=== PATIENT | female | born 1945 | race Caucasian/White ===

== ENCOUNTER → 2021-05-03 | Outpatient (CLI) | payer MEDICARE ==
[~2021-05-03] MED LIST: BISA5EC PO
[2021-05-03 12:34] LABS: Source, Urine Clean Catch
[2021-05-03 12:35] LABS: Bacteria Not Seen /hpf; Red Blood Cells, Urine Rare /hpf (0-2); Squamous Epithelial Cells Few /hpf (Few)
[2021-05-03 12:36] LABS: White Blood Cells, Urine 0-2 /hpf (0-5)
[2021-05-03 12:54] LABS: BASOPHILS ABSOLUTE AUTO 0.06 K/mm3 (0.00-0.23); BASOPHILS PERCENT AUTO 1 % (0-2); EOSINOPHILS ABSOLUTE AUTO 0.05 K/mm3 (0.00-0.68); EOSINOPHILS PERCENT AUTO 1 % (0-6); Hematocrit 41.4 % (33.0-51.0); IMMATURE GRAN ABSOLUTE AUTO 0.02 K/mm3 (0.00-0.10); IMMATURE GRAN PERCENT AUTO 0 % (0-1); LYMPHOCYTES ABSOLUTE AUTO 1.28 K/mm3 (0.84-5.20); LYMPHOCYTES PERCENT AUTO 15 % (21-46); MONOCYTES ABSOLUTE AUTO 0.78 K/mm3 (0.16-1.47); MONOCYTES PERCENT AUTO 9 % (4-13); Mean Corpuscular HGB 30.6 pg (26.0-34.0); Mean Corpuscular HGB Conc 33.8 g/dL (31.5-36.5); Mean Corpuscular Volume 90 fL (80-100); Mean Platelet Volume 11.1 fL (9.1-12.4); NEUTROPHILS PERCENT AUTO 75 % (41-73); Platelet Count 228 K/mm3 (150-400); RDW Coefficient Variation 13.7 % (11.7-14.2); RDW Standard Deviation 45.7 fL (35.1-46.3); Red Blood Cell Count 4.58 M/mm3 (3.80-5.20); White Blood Cell Count 8.59 K/mm3 (4.00-11.30)
[2021-05-03 13:02] LABS: Albumin, Blood 3.8 g/dL (3.4-5.0); Bilirubin, Total 0.4 mg/dL (0.1-1.0); Bun/Creatinine Ratio 14.3 (12.0-20.0); Calcium, Blood 9.8 mg/dL (8.5-10.1); Creatinine, Blood 0.98 mg/dL (0.40-1.00); Globulin, Blood 3.8 g/dL (2.2-4.0); Potassium, Blood 3.4 mmol/L (3.5-5.5); Total Protein, Blood 7.6 g/dL (6.4-8.2)
[2021-05-03 14:13] LABS: Source, Urine Clean Catch
[2021-05-03 14:28] LABS: Bacteria Not Seen /hpf; Red Blood Cells, Urine 0-2 /hpf (0-2); Squamous Epithelial Cells Few /hpf (Few); White Blood Cells, Urine 0-2 /hpf (0-5)
== END | disposition home or self-care (01) ==
LOC: LAB SHORT 12:25 → LAB EV 12:25
PROVIDERS: General Practice
DX: R19.7 Diarrhea, unspecified (principal); R82.90 Unspecified abnormal findings in urine
CPT/HCPCS: 80053; 81015; 85025

== ENCOUNTER → 2021-05-08 | Outpatient (CLI) | payer MEDICARE ==
[2021-05-08 15:03] LABS: Campylobacter Sp Not Detected (NOT DETECT)
[2021-05-08 15:04] LABS: Adenovirus F 40/41 Not Detected (NOT DETECT); Astrovirus Not Detected (NOT DETECT); Cryptosporidium Not Detected (NOT DETECT); Cyclospora Cayetanensis Not Detected (NOT DETECT); E. Coli O157 Not Detected (NOT DETECT); Entamoeba Histolytica Not Detected (NOT DETECT); Enteroaggregative E. coli-EAEC Not Detected (NOT DETECT); Enteropathogenic E. coli-EPEC Not Detected (NOT DETECT); Enterotoxigenic E. coli-ETEC Not Detected (NOT DETECT); Giardia Lamblia Not Detected (NOT DETECT); Norovirus GI/GII Not Detected (NOT DETECT); Plesiomonas Shigelloides Not Detected (NOT DETECT); Rotavirus A Not Detected (NOT DETECT); Salmonella Sp Not Detected (NOT DETECT); Sapovirus Not Detected (NOT DETECT); Shiga Toxin-prod E. coli-STEC Not Detected (NOT DETECT); Shigella/Enteroin E. coli-EIEC Not Detected (NOT DETECT); Vibrio Cholerae Not Detected (NOT DETECT); Vibrio Sp Not Detected (NOT DETECT); Yersinia Enterocolitica Not Detected (NOT DETECT)
== END | disposition home or self-care (01) ==
LOC: LAB EV 07:13 → LAB SHORT 07:13
PROVIDERS: General Practice
DX: R19.7 Diarrhea, unspecified (principal)
CPT/HCPCS: 0097U

== ENCOUNTER 2021-06-01 11:52 | Emergency (ER) | payer MEDICARE ==
[~2021-06-01] VITALS: Ht 162.6 cm; Wt 54.4 kg
[2021-06-01 12:46] LABS: BASOPHILS ABSOLUTE AUTO 0.05 K/mm3 (0.00-0.23); BASOPHILS PERCENT AUTO 0 % (0-2); EOSINOPHILS PERCENT AUTO 0 % (0-6); Hematocrit 41.2 % (33.0-51.0); Hemoglobin 14.3 g/dL (11.5-16.0); IMMATURE GRAN ABSOLUTE AUTO 0.05 K/mm3 (0.00-0.10); IMMATURE GRAN PERCENT AUTO 0 % (0-1); LYMPHOCYTES ABSOLUTE AUTO 0.71 K/mm3 (0.84-5.20); LYMPHOCYTES PERCENT AUTO 5 % (21-46); MONOCYTES ABSOLUTE AUTO 0.88 K/mm3 (0.16-1.47); MONOCYTES PERCENT AUTO 6 % (4-13); Mean Corpuscular HGB Conc 34.7 g/dL (31.5-36.5); Mean Corpuscular Volume 89 fL (80-100); Mean Platelet Volume 10.9 fL (9.1-12.4); NEUTROPHILS ABSOLUTE AUTO 12.27 K/mm3 (1.96-9.15); NEUTROPHILS PERCENT AUTO 88 % (41-73); Platelet Count 235 K/mm3 (150-400); RDW Coefficient Variation 13.5 % (11.7-14.2); RDW Standard Deviation 43.9 fL (35.1-46.3); Red Blood Cell Count 4.62 M/mm3 (3.80-5.20); White Blood Cell Count 13.96 K/mm3 (4.00-11.30)
[2021-06-01 13:01] LABS: Alanine Aminotransfer (ALT/SGP 19 U/L (12-78); Albumin, Blood 3.4 g/dL (3.4-5.0); Albumin/Globulin Ratio 0.8 (0.8-1.8); Alk Phos 118 U/L (50-136); Anion Gap 11 mmol/L (6-16); Aspartate Aminotrans (AST/SGOT 20 U/L (12-37); Bilirubin, Total 0.7 mg/dL (0.1-1.0); Blood Urea Nitrogen 14 mg/dL (8-24); Bun/Creatinine Ratio 19.7 (12.0-20.0); CO2, Blood 22 mmol/L (21-32); Calcium, Blood 8.6 mg/dL (8.5-10.1); Chloride, Blood 98 mmol/L (98-108); Creatinine, Blood 0.71 mg/dL (0.40-1.00); Glomerular Filtration Rate >60 (60-); Glucose, Blood 161 mg/dL (70-99); Potassium, Blood 3.2 mmol/L (3.5-5.5); Sodium, Blood 131 mmol/L (136-145); Total Protein, Blood 7.4 g/dL (6.4-8.2)
[2021-06-01] MEDS ORDERED: BISA5EC PO (13:41)
== END 2021-06-01 15:04 | disposition home or self-care (01) ==
LOC: ER 11:52
PROVIDERS: Physician Assistant
DX: K56.41 Fecal impaction (principal); I10 Essential (primary) hypertension
CPT/HCPCS: 36415; 74177; 80053; 82272; 85025; 96374-59; 99284-25; A9270; J2060; Q9967

== ENCOUNTER 2021-10-16 08:55 | Day surgery (SDC) | payer MEDICARE ==
[~2021-10-16] VITALS: Ht 162.6 cm; Wt 51.4 kg
[~2021-10-16 08:55] MED LIST changes: +AMLO5; +ASPI325; +Benicar40 MG; +CALCIUM CIT 311 EAC7; +EUTHYROX50 MCG; +HYDCHL12.5; +POTA10T; +PROLIA60 MG/1 ML
[2021-10-16] MEDS ORDERED: ZOCOR20 MG PO (09:16)
--- NOTE | 2021-10-16 09:21 | NUR ---
10/16/21 0921 Rebel Celestin CALL LIGHT WITHIN REACH. EYE DROPS AT 0919 PLEDGETT AT 0911
== END 2021-10-16 10:53 | disposition home or self-care (01) ==
LOC: ORSCSDS 08:55
PROVIDERS: Ophthalmology
PROC: 08RK3JZ Replacement of Left Lens with Synthetic Substitute, Percutaneous Approach (ICD-10-PCS; principal; 2021-10-16 10:15)
DX: H25.12 Age-related nuclear cataract, left eye (principal); I10 Essential (primary) hypertension; E03.9 Hypothyroidism, unspecified; Z79.899 Other long term (current) drug therapy; Z79.82 Long term (current) use of aspirin
CPT/HCPCS: J2001; J2250; J3010; J3301; J7040; V2632

== ENCOUNTER 2021-11-06 08:40 | Day surgery (SDC) | payer MEDICARE ==
[~2021-11-06] VITALS: Ht 160 cm; Wt 51.6 kg
[~2021-11-06 08:40] MED LIST changes: +ZOCOR20 MG PO
--- NOTE | 2021-11-06 09:12 | NUR ---
11/06/21 0912 ALISSA HERNANDEZ TETRACAINE DROP INSTILLED AT 0911 PLEDGETT INSERTED AT 0912
--- NOTE | 2021-11-06 10:56 | NUR ---
11/06/21 Dc6 Rebel Celestin PT RESTING, DENIES ANY PAIN. VS WNL. PT STATES SHE IS READY TO GO HOME. PT SMILING AND LAUGHING IN THE ROOM
== END 2021-11-06 11:03 | disposition home or self-care (01) ==
LOC: ORSCSDS 08:40
PROVIDERS: Ophthalmology
PROC: 08RJ3JZ Replacement of Right Lens with Synthetic Substitute, Percutaneous Approach (ICD-10-PCS; principal; 2021-11-06 10:00)
DX: H25.11 Age-related nuclear cataract, right eye (principal); I10 Essential (primary) hypertension; E03.9 Hypothyroidism, unspecified; Z79.899 Other long term (current) drug therapy
CPT/HCPCS: J2001; J2250; J3010; J3301; J7040; V2632

== ENCOUNTER → 2024-05-06 | Outpatient (CLI) | payer MEDICARE ==
[~2024-05-06] MED LIST changes: +ALEN10 PO; +POTCHL20ER PO
[2024-05-06 09:43] LABS: Appearance, Urine Clear (Clear); Bilirubin, Urine Neg (Neg); Blood, Urine Neg (Neg); Color, Urine Yellow (P-Yellow); Glucose Qualitative, Urine Neg (Normal); Ketones, Urine Neg (Neg); Leukocyte Esterase, Urine Neg (Neg); Nitrite, Urine Neg (Neg); Protein, Urine Neg (Neg); Specific Gravity, Urine 1.015 (1.003-1.022); Urobilinogen, Urine NORM (Normal)
[2024-05-06 20:21] LABS: Adenovirus F 40/41 Not Detected (NOT DETECT); Astrovirus Not Detected (NOT DETECT); Campylobacter Sp Not Detected (NOT DETECT); Cryptosporidium Not Detected (NOT DETECT); Cyclospora Cayetanensis Not Detected (NOT DETECT); E. Coli O157 Not Detected (NOT DETECT); Entamoeba Histolytica Not Detected (NOT DETECT); Enteroaggregative E. coli-EAEC Not Detected (NOT DETECT); Enteropathogenic E. coli-EPEC Not Detected (NOT DETECT); Enterotoxigenic E. coli-ETEC Not Detected (NOT DETECT); Giardia Lamblia Not Detected (NOT DETECT); Norovirus GI/GII Not Detected (NOT DETECT); Plesiomonas Shigelloides Not Detected (NOT DETECT); Rotavirus A Not Detected (NOT DETECT); Salmonella Sp Not Detected (NOT DETECT); Sapovirus Not Detected (NOT DETECT); Shiga Toxin-prod E. coli-STEC Not Detected (NOT DETECT); Shigella/Enteroin E. coli-EIEC Not Detected (NOT DETECT); Vibrio Cholerae Not Detected (NOT DETECT); Vibrio Sp Not Detected (NOT DETECT); Yersinia Enterocolitica Not Detected (NOT DETECT)
== END ==
LOC: LAB 09:28 → LAB SHORT 09:28
PROVIDERS: Physician Assistant Surgical
DX: K52.9 Noninfective gastroenteritis and colitis, unspecified (principal)
CPT/HCPCS: 81003; 87507

== ENCOUNTER 2024-05-19 08:46 | Emergency (ER) | payer MEDICARE ==
[~2024-05-19] VITALS: Ht 160 cm; Wt 49.0 kg
[~2024-05-19 08:46] MED LIST changes: -ALEN10 PO; -POTCHL20ER PO
[2024-05-19 09:36] LABS: BASOPHILS ABSOLUTE AUTO 0.07 K/mm3 (0.00-0.23); BASOPHILS PERCENT AUTO 1 % (0-2); EOSINOPHILS ABSOLUTE AUTO 0.18 K/mm3 (0.00-0.68); EOSINOPHILS PERCENT AUTO 3 % (0-6); Hematocrit 42.1 % (33.0-51.0); Hemoglobin 14.2 g/dL (11.5-16.0); IMMATURE GRAN ABSOLUTE AUTO 0.01 K/mm3 (0.00-0.10); IMMATURE GRAN PERCENT AUTO 0 % (0-1); LYMPHOCYTES ABSOLUTE AUTO 2.15 K/mm3 (0.84-5.20); LYMPHOCYTES PERCENT AUTO 37 % (21-46); MONOCYTES ABSOLUTE AUTO 0.64 K/mm3 (0.16-1.47); MONOCYTES PERCENT AUTO 11 % (4-13); Mean Corpuscular HGB 31.3 pg (26.0-34.0); Mean Corpuscular HGB Conc 33.7 g/dL (31.5-36.5); Mean Corpuscular Volume 93 fL (80-100); Mean Platelet Volume 10.4 fL (9.1-12.4); NEUTROPHILS ABSOLUTE AUTO 2.76 K/mm3 (1.96-9.15); NEUTROPHILS PERCENT AUTO 48 % (41-73); Platelet Count 213 K/mm3 (150-400); RDW Coefficient Variation 13.7 % (11.7-14.2); RDW Standard Deviation 46.9 fL (35.1-46.3); Red Blood Cell Count 4.54 M/mm3 (3.80-5.20); White Blood Cell Count 5.81 K/mm3 (4.00-11.30)
[2024-05-19 10:02] LABS: Albumin, Blood 3.6 g/dL (3.4-5.0); Bilirubin, Total 0.4 mg/dL (0.1-1.0); Bun/Creatinine Ratio 17.6 (12.0-20.0); Calcium, Blood 9.2 mg/dL (8.5-10.1); Creatinine, Blood 0.74 mg/dL (0.40-1.00); Globulin, Blood 3.6 g/dL (2.2-4.0); Magnesium, Blood 2.2 mg/dL (1.6-2.4); Potassium, Blood 3.8 mmol/L (3.5-5.5); Total Protein, Blood 7.2 g/dL (6.4-8.2)
[2024-05-19] MEDS ORDERED: POTCHL20ER PO (11:56)
[2024-05-19] MEDS ORDERED: ALEN10 PO (11:56)
[2024-05-19 12:22] VITALS: BP 140/74
== END 2024-05-19 12:26 | disposition home or self-care (01) ==
LOC: ER 08:46
PROVIDERS: Physician Assistant
DX: Z01.89 Encounter for other specified special examinations (principal); I10 Essential (primary) hypertension; Z79.899 Other long term (current) drug therapy; Z88.8 Allergy status to other drugs, medicaments and biological substances
CPT/HCPCS: 80053; 83735; 85025; 99283

== ENCOUNTER 2024-11-22 10:40 | Inpatient (IN) | payer MEDICARE ==
[~2024-11-22] VITALS: Ht 162.6 cm; Wt 50.1 kg
[~2024-11-22 10:40] MED LIST changes: +ALEN10 PO; -AMLO5; +AMLO5 PO; -CALCIUM CIT 311 EAC7; +CALCIUM CIT 311 EAC7 PO; -EUTHYROX50 MCG; +EUTHYROX50 MCG PO; -HYDCHL12.5; +HYDCHL12.5 PO; +POTCHL20ER PO
[2024-11-22 11:13] LABS: BASOPHILS ABSOLUTE AUTO 0.06 K/mm3 (0.00-0.23); BASOPHILS PERCENT AUTO 0 % (0-2); EOSINOPHILS ABSOLUTE AUTO 0.01 K/mm3 (0.00-0.68); EOSINOPHILS PERCENT AUTO 0 % (0-6); Hematocrit 42.1 % (33.0-51.0); Hemoglobin 14.5 g/dL (11.5-16.0); IMMATURE GRAN ABSOLUTE AUTO 0.05 K/mm3 (0.00-0.10); IMMATURE GRAN PERCENT AUTO 0 % (0-1); LYMPHOCYTES ABSOLUTE AUTO 1.02 K/mm3 (0.84-5.20); LYMPHOCYTES PERCENT AUTO 7 % (21-46); MONOCYTES ABSOLUTE AUTO 0.62 K/mm3 (0.16-1.47); MONOCYTES PERCENT AUTO 4 % (4-13); Mean Corpuscular HGB Conc 34.4 g/dL (31.5-36.5); Mean Corpuscular Volume 90 fL (80-100); Mean Platelet Volume 10.7 fL (9.1-12.4); NEUTROPHILS ABSOLUTE AUTO 13.51 K/mm3 (1.96-9.15); NEUTROPHILS PERCENT AUTO 88 % (41-73); Platelet Count 262 K/mm3 (150-400); RDW Coefficient Variation 13.3 % (11.7-14.2); Red Blood Cell Count 4.68 M/mm3 (3.80-5.20); White Blood Cell Count 15.27 K/mm3 (4.00-11.30)
[2024-11-22 11:41] LABS: Albumin, Blood 3.2 g/dL (3.4-5.0); Albumin/Globulin Ratio 0.8 (0.8-1.8); Bilirubin, Total 0.7 mg/dL (0.1-1.0); Bun/Creatinine Ratio 19.4 (12.0-20.0); Calcium, Blood 8.7 mg/dL (8.5-10.1); Creatinine, Blood 0.57 mg/dL (0.40-1.00); Globulin, Blood 3.8 g/dL (2.2-4.0); Potassium, Blood 3.1 mmol/L (3.5-5.5)
[2024-11-22] MEDS ORDERED: Ampicillin Sod/Sulbactam Sod 3 GM in NS 100 ML IV ONE (13:15)
[2024-11-22] MEDS ORDERED: Bisacodyl 10 MG Supp PR PRN (15:20)
[2024-11-22] MEDS ORDERED: Ondansetron HCl 2 MG / ML 2ML Vial IV PRN (15:25)
[2024-11-22] MEDS ORDERED: Magnesium Hydroxide Conc 10 ML UDC PO PRN (15:25)
[2024-11-22] MEDS ORDERED: FLU VACC TS2024-25(6MOS UP)/PF 45 MCG/0.5 ML SYRINGE IM ONE (15:25)
[2024-11-22] MEDS ORDERED: Potassium Chloride 20 MEQ TabCR PO ONE (16:00)
[2024-11-22] MEDS ORDERED: Pantoprazole Sodium 40 MG Injection IV SCH (16:30)
[2024-11-22] MEDS ORDERED: NS 1,000 ML IV SCH (17:20)
[2024-11-22 17:21] VITALS: BP 140/71
[2024-11-22] MEDS ORDERED: Ampicillin Sod/Sulbactam Sod 3 GM in NS 100 ML IV SCH (18:00)
--- NOTE | 2024-11-22 18:43 | NUR ---
END OF SHIFT SUMMARY: A&Ox4. PLEASANT AND COOPERATIVE WITH CARE. CALLS APPROPRIATELY AND IS ABLE TO ADVOCATE NEEDS EFFECTIVELY. AMBULATES INDEPENDENTLY. CONTINENT OF BOWEL AND BLADDER. MEDS WHOLE WITH FLUIDS. NOW HAVING LOOSE STOOLS BUT STILL EXPERIENCING SOME FECAL IMPACTION. THIS HAS BEEN AN ONGOING ISSUE FOR YEARS WITH HER. CURRENTLY LIVES AT [facility] WITH , FOREST. MOVED FROM [facility] IN 2020. LACTIC >3; BLOOD CULTURES AND FLUIDS ORDERED. BED IN LOWEST POSITION, CALL LIGHT WITHIN REACH, ALL NEEDS MET. REPORT TO ONCOMING NURSE.
[2024-11-22 19:15] VITALS: BP 137/69
[2024-11-22] MEDS ORDERED: Atorvastatin 10 MG Tab PO SCH (21:00)
[2024-11-22] MEDS ORDERED: Sennosides 8.6 MG Tab PO SCH (21:00)
[2024-11-22] MEDS ORDERED: Lactobacil 2-S.Thermo-Bifido 1 1 Cap PO SCH (21:00)
[2024-11-22] MEDS ORDERED: Docusate Sodium 100 MG Cap PO SCH (21:00)
[2024-11-23 02:34] VITALS: BP 128/67
--- NOTE | 2024-11-23 04:55 | NUR ---
SHIFT SUMMARY: PT AOX4 VERY PLEASANT MOOD AND AFFECT. COOPERATIVE IN CARE CALLS APPROPRIATELY. PT IND IN ROOM CALLS TO MANAGE IV AND LINES THEY AMBULATE TO BATHROOM. HAD BM. DENIES PAIN. PT TOLERATING MEDICATIONS WELL. SLEPT THROUGH MOST OF THE NIGHT WITH FEW INTERUPTIONS. CURRENTLY RESTING IN BED, BED IN LOWEST POSITION, CALL LIGHT IN REACH. CONTINUING CARE.
[2024-11-23 05:52] LABS: BASOPHILS ABSOLUTE AUTO 0.03 K/mm3 (0.00-0.23); BASOPHILS PERCENT AUTO 0 % (0-2); EOSINOPHILS ABSOLUTE AUTO 0.01 K/mm3 (0.00-0.68); EOSINOPHILS PERCENT AUTO 0 % (0-6); Hematocrit 37.4 % (33.0-51.0); Hemoglobin 12.9 g/dL (11.5-16.0); IMMATURE GRAN ABSOLUTE AUTO 0.06 K/mm3 (0.00-0.10); IMMATURE GRAN PERCENT AUTO 0 % (0-1); LYMPHOCYTES ABSOLUTE AUTO 1.79 K/mm3 (0.84-5.20); LYMPHOCYTES PERCENT AUTO 13 % (21-46); MONOCYTES ABSOLUTE AUTO 1.08 K/mm3 (0.16-1.47); MONOCYTES PERCENT AUTO 8 % (4-13); Mean Corpuscular HGB 31.1 pg (26.0-34.0); Mean Corpuscular HGB Conc 34.5 g/dL (31.5-36.5); Mean Corpuscular Volume 90 fL (80-100); Mean Platelet Volume 11.4 fL (9.1-12.4); NEUTROPHILS ABSOLUTE AUTO 10.42 K/mm3 (1.96-9.15); NEUTROPHILS PERCENT AUTO 78 % (41-73); Platelet Count 228 K/mm3 (150-400); RDW Coefficient Variation 13.5 % (11.7-14.2); RDW Standard Deviation 43.8 fL (35.1-46.3); Red Blood Cell Count 4.15 M/mm3 (3.80-5.20); White Blood Cell Count 13.39 K/mm3 (4.00-11.30)
[2024-11-23] MEDS ORDERED: Levothyroxine Sodium 0.05 MG Tab PO SCH (06:00)
[2024-11-23 06:02] LABS: Bun/Creatinine Ratio 14.9 (12.0-20.0); Calcium, Blood 8.1 mg/dL (8.5-10.1); Creatinine, Blood 0.6 mg/dL (0.40-1.00); Potassium, Blood 2.9 mmol/L (3.5-5.5)
[2024-11-23 07:17] VITALS: BP 136/68
[2024-11-23] MEDS ORDERED: AmLODIPine Besylate 5 MG Tab PO SCH (09:00)
[2024-11-23] MEDS ORDERED: Potassium Chloride 40 MEQ in NS 250 ML IV ONE (09:05)
[2024-11-23] MEDS ORDERED: Lactated Ringer's 1,000 ML IV SCH (10:40)
--- NOTE | 2024-11-23 10:42 | NUR ---
DR. HOWELL NOTIFIED OF CRITICAL LACTIC RESULT, EMAR UPDATED
[2024-11-23 15:58] VITALS: BP 122/63
--- NOTE | 2024-11-23 16:39 | NUR ---
SUMMARY NO ACUTE CHANGES THIS SHIFT. PT REPORTS FEELING VERY WELL OVERALL. REPORTS SMALL WATERY STOOL WITH URINATION. PT LACTIC 3.4 UP FROM 2.6. FLUIDS CHANGED TO LR. SPOUSE AT BEDSIDE VISITING. PT IS ORIENTED X4, ABLE TO EXPRESS NEEDS. PT DENIES CHEST PAIN, SOB, OR ANY GENERALIZED PAIN. INDEPENDENT TO THE BATHROOM AND WITH ADLS.
[2024-11-23 19:47] VITALS: BP 129/71
[2024-11-24 04:40] VITALS: BP 148/85
[2024-11-24 05:32] LABS: BASOPHILS ABSOLUTE AUTO 0.05 K/mm3 (0.00-0.23); BASOPHILS PERCENT AUTO 1 % (0-2); EOSINOPHILS ABSOLUTE AUTO 0.19 K/mm3 (0.00-0.68); EOSINOPHILS PERCENT AUTO 2 % (0-6); Hematocrit 36.4 % (33.0-51.0); Hemoglobin 12.4 g/dL (11.5-16.0); IMMATURE GRAN ABSOLUTE AUTO 0.03 K/mm3 (0.00-0.10); IMMATURE GRAN PERCENT AUTO 0 % (0-1); LYMPHOCYTES ABSOLUTE AUTO 2.05 K/mm3 (0.84-5.20); LYMPHOCYTES PERCENT AUTO 22 % (21-46); MONOCYTES ABSOLUTE AUTO 0.77 K/mm3 (0.16-1.47); MONOCYTES PERCENT AUTO 8 % (4-13); Mean Corpuscular HGB 30.9 pg (26.0-34.0); Mean Corpuscular HGB Conc 34.1 g/dL (31.5-36.5); Mean Corpuscular Volume 91 fL (80-100); Mean Platelet Volume 11.1 fL (9.1-12.4); NEUTROPHILS ABSOLUTE AUTO 6.07 K/mm3 (1.96-9.15); NEUTROPHILS PERCENT AUTO 66 % (41-73); Platelet Count 202 K/mm3 (150-400); RDW Coefficient Variation 13.9 % (11.7-14.2); RDW Standard Deviation 46.6 fL (35.1-46.3); Red Blood Cell Count 4.01 M/mm3 (3.80-5.20); White Blood Cell Count 9.16 K/mm3 (4.00-11.30)
[2024-11-24 05:54] LABS: Bun/Creatinine Ratio 11.6 (12.0-20.0); Calcium, Blood 8.2 mg/dL (8.5-10.1); Creatinine, Blood 0.6 mg/dL (0.40-1.00); Potassium, Blood 3.1 mmol/L (3.5-5.5)
--- NOTE | 2024-11-24 05:55 | NUR ---
SHIFT SUMMARY PT SLEPT INTERMITTENTLY THROUGH THE NIGHT. DENIES ABDOMINAL PAIN OR NAUSEA. PT PASSING FLATUS, BUT NO BM THIS SHIFT. IVF AND IV ANTIBIOTICS CONTINUE. BED IN LOWEST POSITION, CALL LIGHT WITHIN REACH, SIDE RAILS UP X2.
[2024-11-24 07:36] VITALS: BP 152/82
[2024-11-24] MEDS ORDERED: Potassium Chloride 20 MEQ TabCR PO ONE (10:00)
--- NOTE | 2024-11-24 10:57 | NUR ---
"Spiritual Care | Pt. request Pt. is awake in bed when she welcomed my visit. Spouse is at bedside. Pt. is pleasant. Facilitaed a life review and listened with empathy and interest. Pt. displayed evidence of hopeful outlook, and verbalized that she had never before been admitted to a hospital for an illness. Considered matters of tatiana and belief. Prayed with the pt. and spouse. both verbalized gratitude for the spiritual care visit."
[2024-11-24] MEDS ORDERED: BISA10S PR (14:17)
[2024-11-24] MEDS ORDERED: SENN187 PO (14:17)
[2024-11-24] MEDS ORDERED: AMOCLA875 PO (14:19)
[2024-11-24] MEDS ORDERED: VISBIOME 112.51 EACH PO (14:19)
--- NOTE | 2024-11-24 14:50 | NUR ---
SHIFT/DISCHARGE SUMMARY: PATIENT A/OX4, CALM, PLEASANT AND COOPERATIVE c CARE. PATIENT DENIES CP/PRESSURE, N/V, SOB AND DIZZINESS. PATIENT DENIES ABDOMINAL PAIN/TENDERNESS. PATIENT TOLERATING HH DIET WELL. PATIENT RECEIVED IV ABX/SCHEDULED MEDS PER EMAR. PATIENT REPORTS "OVERALL FEELING A LOT BETTER TODAY." VITAL SIGNS REVIEWED. PATIENT HAS NO NEW CONCERNS OR COMPLAINTS THIS SHIFT. PIV TO R FOREARM DC'D. PATIENT DISCHARGE HOME. DISCHARGE INSTRUCTIONS PACKET GIVEN TO PATIENT. PATIENT AND SPOUSE EDUCATED ON ADMITTING DX'S OF STERCORAL COLITIS, S/S, TX, NEW RX AND TO F/U c PCP. PATIENT AND SPOUSE VERBALIZED UNDERSTANDING AND NO FURTHER QUESTIONS. RX WAS FAXED TO PATIENT PREFERRED [facility]ARMAC[facility]. ALL PERSONAL BELONGINGS WERE SENT c THE PATIENT AND LEFT AT 1502, TRANSPORTED VIA WHEELCHAIR BY [facility] TO PATIENT ENTRANCE.
== END 2024-11-24 17:23 | disposition home or self-care (01) | DRG 392 ==
LOC: ER 10:40 → MEDS 16:33 → ENPENDDIS 11-24 14:03 → MEDS 11-24 17:23
PROVIDERS: Emergency Medicine; ADMIT Family Medicine
DX: K52.89 Other specified noninfective gastroenteritis and colitis (principal); E87.1 Hypo-osmolality and hyponatremia; E87.20 Acidosis, unspecified; I10 Essential (primary) hypertension; E87.6 Hypokalemia; E03.9 Hypothyroidism, unspecified; E78.5 Hyperlipidemia, unspecified; N32.89 Other specified disorders of bladder; K59.00 Constipation, unspecified; Z88.8 Allergy status to other drugs, medicaments and biological substances; Z79.890 Hormone replacement therapy
CPT/HCPCS: 36415; 74177; 80048; 80053; 83605; 83690; 85025; 93005; 93010; 96365-59; 99285-25; A9270; J0295; J2470; J3480; J7030; J7050; J7120; Q9967

== ENCOUNTER → 2025-06-06 | Outpatient (CLI) | payer MEDICARE ==
[~2025-06-06] MED LIST changes: +AMOCLA875 PO; +BISA10S PR; +SENN187 PO; +VISBIOME 112.51 EACH PO
== END | disposition home or self-care (01) ==
LOC: LAB 12:07 → LAB SHORT 12:07
DX: L82.1 Other seborrheic keratosis (principal); L85.8 Other specified epidermal thickening
CPT/HCPCS: 88305